=== PATIENT | female | born 1960 | race Caucasian/White ===

== ENCOUNTER → 2025-09-13 | Outpatient (CLI) | payer MEDICARE, SELFPAY ==
--- NOTE | 2025-09-13 | XR_ITS ---
Examination: Right hip AP, lateral, AP pelvis 3 views Technique: Hip AP lateral, AP pelvis, 3 views Exam date and time: September 13, 2025, 1152 hours INDICATIONS: Right hip pain beginning 2 months ago FINDINGS: Moderate narrowing hip joints No right or left hip fracture or dislocation Bones of the pelvis intact IMPRESSION: Moderate bilateral hip osteoarthritis.
--- NOTE | 2025-09-13 | XR_ITS ---
Examination: Lumbar spine, 5 views Technique: Lumbar spine AP, lateral, coned lateral lower lumbar spine, bilateral obliques 5 views Exam date and time: September 13, 2025, left 52 hours COMPARISON: November 09, 2006 INDICATIONS: Low back pain beginning 2 months ago. FINDINGS: Moderate osteopenia Moderate to advanced diffuse facet arthropathy. No lumbar fracture. Mild lumbar spondylosis. No significant lumbar disc narrowing IMPRESSION: Mild lumbar spondylosis No lumbar fracture No significant lumbar disc narrowing
--- NOTE | 2025-09-13 11:30 | XR_ITS ---
Examination: Screening digital mammography, bilateral Computer aided detection 3-D breast Tomosynthesis, bilateral Date and time of exam: September 13, 2025, 11:23 a.m., compared to mammogram dated May 10, 2017 Indication: Screening Technique: Nonmagnified MLO, CC views of the breasts to been obtained, reconstructed from 3-D Tomosynthesis images. R2 computer aided detection program utilized for evaluation of suspicious masses and/or abnormal calcifications. 3-D Tomosynthesis images obtained. Findings: Scattered areas of fibroglandular density. Benign calcifications. There are no suspicious masses Impression: BI-RADS category II: Benign Findings. Recommend 1 year follow-up mammogram.
== END | disposition home or self-care (01) ==
LOC: CDIM 11:12
PROVIDERS: Referring Provider Physician Assistant; Visit Provider Physician Assistant
DX: Z12.31 Encounter for screening mammogram for malignant neoplasm of breast (principal); R92.323 Mammographic fibroglandular density, bilateral breasts; R92.1 Mammographic calcification found on diagnostic imaging of breast; M16.0 Bilateral primary osteoarthritis of hip; M47.816 Spondylosis without myelopathy or radiculopathy, lumbar region
CPT/HCPCS: 72110; 73502; 77063; 77067

== ENCOUNTER → 2025-09-14 | Outpatient (CLI) | payer MEDICARE, SELFPAY ==
--- NOTE | 2025-09-14 13:20 | XR_ITS ---
Examination: Bone densitometry Date and time of exam: September 14, 2025, 1357 hours INDICATIONS: Menopause age 55 postmenopausal rib fracture Technique: Lumbar spine and hip total bone mineralization values of an calculated. Peak reference and age match control results have been displayed. Findings: Lumbar spine total bone mineralization is 1.182 gm/cm2. This is 0.2 standard deviations above peak reference. This is 3.0 standard deviations above age-matched controls. Hip total bone mineralization is 1.003 gm/cm2 This is 1.5 standard deviations above peak reference. This is 1.7 standard deviations above age-matched controls Impression: There is normal mineralization based on lumbar spine measurements. There is normal mineralization based on hip measurements
== END | disposition home or self-care (01) ==
PROVIDERS: PCP Physician Assistant; Referring Provider Physician Assistant; Visit Provider Physician Assistant
DX: Z13.820 Encounter for screening for osteoporosis (principal)
CPT/HCPCS: 77080

== ENCOUNTER → 2025-09-18 | Outpatient (CLI) | payer MEDICARE, SELFPAY ==
[2025-09-18 10:56] LABS: Collection Type, Urine Clean Catch
[2025-09-18 11:04] LABS: Basophils # (Auto) 0.1 Thou/mm3 (0.0-0.2); Basophils % (Auto) 1 % (0-2.5); Eosinophils # (Auto) 0.1 Thou/mm3 (0.0-0.5); Eosinophils % (Auto) 1 % (0-10); Hematocrit 43.5 % (36.0-46.0); Hemoglobin 14.8 g/dL (12.0-16.0); Immature Granulocytes Auto 0.01 Thou/mm3 (0.00-0.00); Lymphocytes # (Auto) 2.5 Thou/mm3 (1.0-4.8); Lymphocytes % (Auto) 48 % (10-50); Mean Corpuscular HGB Conc 34.0 g/dl (31.0-37.0); Mean Corpuscular Hemoglobin 30.8 pg (25.0-35.0); Mean Corpuscular Volume 91 fL (80-100); Monocytes # (Auto) 0.2 Thou/mm3 (0.0-0.8); Monocytes % (Auto) 4 % (0-12); Neutrophils # (Auto) 2.3 Thou/mm3 (1.8-7.7); Neutrophils % (Auto) 45 % (37-80); Nucleated Red Blood Cell # 0.00 Thou/mm3 (0.00-0.00); Nucleated Red Blood Cell % 0 /100 WBC (0); Platelet Count 242 Thou/mm3 (140-440); RDW Standard Deviation 43.1 fL (36.4-46.3); Red Blood Count 4.80 Miln/mm3 (4.00-5.20); White Blood Count 5.2 Thou/mm3 (3.6-11.0)
[2025-09-18 11:08] LABS: Glucose Estimated Average 117 mg/dL (80-131); Hemoglobin A1C 5.7 % Hgb (4.8-6.0)
[2025-09-18 11:26] LABS: Bilirubin,Urine Negative (Negative); Blood,Urine Negative (Negative); Clarity,Urine Clear (Clear/Hazy); Color,Urine Lt-Yellow (Lt Yel-Yel); Culture Indicated,Urine Not Indicated; Glucose, Urine Negative (Negative); Ketones,Urine Negative (Negative); Leukocyte Esterase,Urine Positive (Negative); Nitrite,Urine Negative (Negative); PH,Urine 6.5 (5.0-7.0); Protein,Urine Negative (Neg - Trace); RBC,Urine 2 /hpf (0-3); Specific Gravity,Urine 1.019 (1.001-1.035); Squamous Epithelial Cell,Urine 1 /hpf (0-5); Urobilinogen,Urine Negative mg/dL (0.0-1.0); WBC,Urine 1 /hpf (0-5)
[2025-09-18 11:31] LABS: Vitamin B12 650 pg/mL (211-911); Vitamin D 25 Hydroxy Total 32.0 ng/mL (7.3-40.2)
[2025-09-18 11:38] LABS: Alanine Aminotransferase 40 U/L (10-49); Albumin, Serum 5.3 gm/dL (3.4-4.8); Albumin/Globulin Ratio 2.8 (1.2-2.2); Alkaline Phosphatase 100 U/L (46-116); Anion Gap 12 (7-16); Aspartate Amino Transferase 38 U/L (0-34); BUN/Creatinine Ratio 14 Ratio (12-20); Bilirubin,Total 0.9 mg/dL (0.3-1.2); Blood Urea Nitrogen 14 mg/dL (9-23); Calcium 9.9 mg/dL (8.3-10.6); Calcium (Corrected) 9.9 mg/dL (8.5-10.1); Carbon Dioxide 26.8 mMol/L (20.0-31.0); Cardiac Risk Estimate 3.0 RATIO (3.7-5.6); Chloride 103 mMol/L (98-107); Cholesterol 247 mg/dL (132-200); Creatinine (Component) 1.0 mg/dL (0.6-1.3); Globulin 1.9 gm/dL (2.3-3.5); Glucose 120 mg/dL (74-106); HDL Cholesterol 83 mg/dL (40-60); LDL Cholesterol,Calculated 144 mg/dL (0-130); Osmolality,Calculated 284 (275-295); Potassium 4.4 mMol/L (3.4-5.1); Sodium 142 mMol/L (136-145); Thyroid Stimulating Hormone 2.72 uIU/mL (0.55-4.78); Total Protein 7.2 gm/dL (5.7-8.2); Triglycerides 102 mg/dL (30-150); eGFR > 60 See Note
== END | disposition home or self-care (01) ==
LOC: COPL 09:45
PROVIDERS: PCP Physician Assistant; Referring Provider Physician Assistant; Visit Provider Physician Assistant
DX: E78.5 Hyperlipidemia, unspecified (principal); R73.01 Impaired fasting glucose
CPT/HCPCS: 36415; 80053; 80061; 81001; 82306; 82607; 83036; 84443; 85025